=== PATIENT | female | born 2000 | race Caucasian/White ===

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

== ENCOUNTER → 2018-05-16 17:38 | Observation (INO) ==
[2018-05-16 14:44] LABS: Amphetamine Screen,Urine Negative ng/mL (Cutoff=1000); Barbiturate Screen,Urine Negative ng/mL (Cutoff=200); Benzodiazepines Screen,Urine Negative ng/mL (Cutoff=200); Cannabinoid Screen,Urine Negative ng/mL (Cutoff = 50); Cocaine Screen,Urine Negative ng/mL (Cutoff= 300); Creatinine,Urine 103 mg/dL; Opiate Screen,Urine Negative ng/mL (Cutoff=300); Phencyclidine Screen,Urine Negative ng/mL (Cutoff=25); Protein/Creatinine Ratio,Urine 0.18 mg/mg (0.00-0.20)
[2018-05-16 16:20] LABS: Basophils % 0.2 %; Eosinophils # 0.3 K/mcL (0.0-0.6); Hematocrit 32.4 % (35.3-44.9); Hemoglobin 10.6 g/dL (11.5-15.4); Immature Granulocytes % 1.2 % (0-4); Lymphocytes # 1.9 K/mcL (0.6-4.6); Lymphocytes % 14.2 %; Mean Corpuscular HGB Conc 32.7 g/dL (31.6-35.5); Mean Corpuscular Hemoglobin 28.3 pg (28.0-33.3); Mean Corpuscular Volume 86.4 fL (83.0-100.0); Mean Platelet Volume 10.8 fL (9.4-12.4); Monocytes % 7.5 %; Neutrophils # 9.9 K/mcL (1.6-8.9); Platelet Count 170 K/mcL (140-400); Red Blood Count 3.75 M/mcL (3.82-4.97); Red Cell Distribution Width 12.6 % (11.5-14.5); Segmented Neutrophils % 74.9 %
[2018-05-16 16:32] LABS: Alanine Aminotransferase 8 Units/L (7-52); Aspartate Amino Transferase 13 Units/L (13-39); BUN/Creatinine Ratio 9 (6-26); Blood Urea Nitrogen 4 mg/dL (6-20); Lactate Dehydrogenase 150 Units/L (140-271); Uric Acid 3.5 mg/dL (2.3-7.6); eGFR For Non-African Americans > 60
--- NOTE | 2018-05-16 16:52 | Discharge Summary ---
Date of Encounter: 05/16/18 Time of Encounter: 16:52 - Discharge Diagnosis (1) 33 weeks gestation of Priority: Primary Status: Acute Comments: admitted for observation for [facility] evaluation (2) NST (non-stress test) reactive on surveillance Priority: Secondary Status: Acute Comments: fhr baseline 135 bpm moderate variability +15x15 accels no decels noted. Cat. 1 tracing - Discharge Medications Prescriptions: No Action Pnv with Ca,No.72/Iron/FA [Pnv Plus Multivit Tab] 1 tab PO DAILY Home Medications: Pnv with Ca,No.72/Iron/FA [Pnv Plus Multivit Tab] 1 tab PO DAILY 03/21/18 [History] Allergies/Adverse Reactions: Allergy/AdvReac Type Severity Reaction Status Date / Time Amoxicillin Allergy Rash Verified 05/16/18 14:17 Penicillins [PCN] Allergy Rash Verified 05/16/18 14:17 Data Procedures and tests throughout hospitalization: Laboratory Tests 05/16/18 05/16/18 05/16/18 13:37 14:07 14:07 WBC 13.3 H RBC 3.75 L Hgb 10.6 L Hct 32.4 L MCV 86.4 MCH 28.3 MCHC 32.7 RDW 12.6 Plt Count 170 MPV 10.8 Immature Gran % 1.2 Seg Neutrophils % 74.9 Lymphocytes % 14.2 Monocytes % 7.5 Eosinophils % 2.0 Basophils % 0.2 Neutrophils # 9.9 H Lymphocytes # 1.9 Monocytes # 1.0 Eosinophils # 0.3 Basophils # 0.0 BUN Creatinine 0.41 L Est GFR ( Amer) Est GFR (Non-Af Amer) BUN/Creatinine Ratio Uric Acid AST ALT Lactate Dehydrogenase Urine Creatinine 103 Protein/Creatinin Ratio 0.18 Urine Total Protein 18 H Urine Opiates Screen Negative Ur Barbiturates Screen Negative Ur Phencyclidine Scrn Negative Ur Amphetamines Screen Negative U Benzodiazepines Scrn Negative Urine Cocaine Screen Negative U Marijuana (THC) Screen Negative Ur Drug Screen Interp See Below 05/16/18 14:07 WBC RBC Hgb Hct MCV MCH MCHC RDW Plt Count MPV Immature Gran % Seg Neutrophils % Lymphocytes % Monocytes % Eosinophils % Basophils % Neutrophils # Lymphocytes # Monocytes # Eosinophils # Basophils # BUN 4 L Creatinine 0.44 L Est GFR ( Amer) > 60 Est GFR (Non-Af Amer) > 60 BUN/Creatinine Ratio 9 Uric Acid 3.5 AST 13 ALT 8 Lactate Dehydrogenase 150 Urine Creatinine Protein/Creatinin Ratio Urine Total Protein Urine Opiates Screen Ur Barbiturates Screen Ur Phencyclidine Scrn Ur Amphetamines Screen U Benzodiazepines Scrn Urine Cocaine Screen U Marijuana (THC) Screen Ur Drug Screen Interp Labs on day of discharge: Labs from last 24 hours 05/16/18 05/16/18 05/16/18 14:07 14:07 14:07 WBC 13.3 H RBC 3.75 L Hgb 10.6 L Hct 32.4 L MCV 86.4 MCH 28.3 MCHC 32.7 RDW 12.6 Plt Count 170 MPV 10.8 Immature Gran % 1.2 Seg Neutrophils % 74.9 Lymphocytes % 14.2 Monocytes % 7.5 Eosinophils % 2.0 Basophils % 0.2 Neutrophils # 9.9 H Lymphocytes # 1.9 Monocytes # 1.0 Eosinophils # 0.3 Basophils # 0.0 BUN 4 L Creatinine 0.44 L 0.41 L Est GFR ( Amer) > 60 Est GFR (Non-Af Amer) > 60 BUN/Creatinine Ratio 9 Uric Acid 3.5 AST 13 ALT 8 Lactate Dehydrogenase 150 Urine Creatinine Protein/Creatinin Ratio Urine Total Protein Urine Opiates Screen Ur Barbiturates Screen Ur Phencyclidine Scrn Ur Amphetamines Screen U Benzodiazepines Scrn Urine Cocaine Screen U Marijuana (THC) Screen Ur Drug Screen Interp 05/16/18 13:37 WBC RBC Hgb Hct MCV MCH MCHC RDW Plt Count MPV Immature Gran % Seg Neutrophils % Lymphocytes % Monocytes % Eosinophils % Basophils % Neutrophils # Lymphocytes # Monocytes # Eosinophils # Basophils # BUN Creatinine Est GFR ( Amer) Est GFR (Non-Af Amer) BUN/Creatinine Ratio Uric Acid AST ALT Lactate Dehydrogenase Urine Creatinine 103 Protein/Creatinin Ratio 0.18 Urine Total Protein 18 H Urine Opiates Screen Negative Ur Barbiturates Screen Negative Ur Phencyclidine Scrn Negative Ur Amphetamines Screen Negative U Benzodiazepines Scrn Negative Urine Cocaine Screen Negative U Marijuana (THC) Screen Negative Ur Drug Screen Interp See Below Date of admission: 05/16/18 13:25 Primary care physician: Natalie Hillman MD Discharging clinician: Meagan Redman Anticipated date of discharge: 05/16/18 - Patient Status Disposition: Home, Self-Care Condition: Good Functional capacity at discharge: independent ambulation - Discharge Instructions Follow Up With: Natalie Hillman MD [Primary Care Provider] - Navi Villagran MD [Partnered Physician] - - Diet and Activity Activity: increase activity as tolerated Diet: regular diet Hospital Course [employer] Hospital course: Patient is a 17 y/o @ 33w2d presented to labor and delivery with complaints of blurred vision. Patient was working when this happened. Patient reports good movement. Denies any contractions, LOF or VB. Patient reports feeling better after taking a nap in labor and delivery. All [facility] labs wnl along with BPs. Dr. Villagran notified and gave order to discharge home. Time Attestation: Total time spent providing and/or coordinating discharge services: Time Spent: Less than 30 minutes Exam - Constitutional General appearance IM: A&O X 3, pleasant, answers questions appropriately - Respiratory Respiratory exam: Present: CTAB - Cardiovascular Cardiovascular exam IM: Present: RRR, +S1, +S2 - Extremities Exam Extremities exam IM: Present: full ROM, normal capillary refill, normal inspection - Neurological Exam Neurological exam: alert, oriented X3, reflexes normal (FHR 135 bpm moderate variability +15x15 accels no decels noted. CAt. 1 tracing) - VTE Reasons for not Prescribing Prophylaxis: Treatment not Indicated - Low risk for VTE
== END | disposition home or self-care (01) ==
LOC: 1NENULAB
PROVIDERS: ADMIT Advanced Practice Midwife; ATTEND Advanced Practice Midwife

== ENCOUNTER 2018-07-02 06:00 | Inpatient (IN) ==
[2018-07-02] MEDS ORDERED: Metoclopramide 10 MG/2 ML VIAL IVP PRN (06:09)
[2018-07-02] MEDS ORDERED: Lidocaine 1% 20 ML MDV INFILT PRN (06:09)
[2018-07-02] MEDS ORDERED: Famotidine 20 MG/2 ML VIAL IVP PRN (06:09)
[2018-07-02] MEDS ORDERED: *HR* Nalbuphine 10 MG/ML AMPUL IVP PRN (06:09)
[2018-07-02] MEDS ORDERED: Ondansetron 4 MG/2 ML VIAL IVP PRN (06:09)
[2018-07-02] MEDS ORDERED: Naloxone 0.4 MG/ML INJ IVP PRN (06:09)
[2018-07-02] MEDS ORDERED: Oxytocin 20 units/ LR 1000 mL 20 UNIT/1,000 ML BAG IVC SCH ×2 (06:15→20:00)
[2018-07-02] MEDS ORDERED: Ringers Solution, Lactated 1,000 ML IVC SCH (06:15)
[2018-07-02 06:53] LABS: Basophils # 0.1 K/mcL (0.0-0.2); Basophils % 0.4 %; Eosinophils # 0.2 K/mcL (0.0-0.6); Eosinophils % 1.4 %; Hematocrit 34.1 % (35.3-44.9); Hemoglobin 11.3 g/dL (11.5-15.4); Immature Granulocytes % 0.9 % (0-4); Lymphocytes # 2.3 K/mcL (0.6-4.6); Lymphocytes % 16.4 %; Mean Corpuscular HGB Conc 33.1 g/dL (31.6-35.5); Mean Corpuscular Hemoglobin 27.3 pg (28.0-33.3); Mean Corpuscular Volume 82.4 fL (83.0-100.0); Mean Platelet Volume 11.1 fL (9.4-12.4); Monocytes % 6.8 %; Neutrophils # 10.4 K/mcL (1.6-8.9); Platelet Count 162 K/mcL (140-400); Red Blood Count 4.14 M/mcL (3.82-4.97); Segmented Neutrophils % 74.1 %
[2018-07-02 06:55] LABS: Amphetamine Screen,Urine Negative ng/mL (Cutoff=1000); Barbiturate Screen,Urine Negative ng/mL (Cutoff=200)
[2018-07-02 06:56] LABS: Benzodiazepines Screen,Urine Negative ng/mL (Cutoff=300); Cannabinoid Screen,Urine Negative ng/mL (Cutoff = 50); Cocaine Screen,Urine Negative ng/mL (Cutoff= 300); Opiate Screen,Urine Negative ng/mL (Cutoff=300); Phencyclidine Screen,Urine Negative ng/mL (Cutoff=25)
--- NOTE | 2018-07-02 07:24 | OB/GYN History & Physical ---
Date of Encounter: 07/02/18 Time of Encounter: 07:20 Assessment and Plan (1) 39 weeks gestation of Current visit: Yes Status: Acute (2) MTHFR gene mutation Current visit: Yes Status: Acute (3) Elective induction of labor planned Current visit: Yes Status: Acute History of Present Illness Chief complaint: induction HPI: Ms. Kaur is a 17 year old female who presents today for induction of labor. She is doing well. She is having no complaints of any kind today. Baby is very active with measured category 1 tracing this morning. Pitocin will be started. She has allergies to Omnicef. She is currently on vitamins. 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 Her ESR was 1: 232 last and thus not placed on anticoagulants by [facility]. MFM is been followed patient's and doubly she needed a blood thinners. They believe her MTHFR is diluted by volumes, it is not suggested for this patient to be on any medications. Surgical history is negative. She has no history of abnormal Pap smears, STDs or pelvic infections. She has no history of abnormal breast findings. Socially she denies tobacco, alcohol, illicit drug use. Family history significant for maternal grandmother with breast and lung cancer. Maternal grandfather with lung cancer. Obstetric history significant for one term vaginal delivery. Past Med Surg Social Fam HX - Past Medical History Medical history: no medical history Additional medical history: MTHFR Psychiatric history: no psych history - Past Surgical History Surgical History: other Additional surgical history: left ring finger surgery @ 13 wks - Social History Smoking Status: Never smoker Smokeless Tobacco Status: No Alcohol use: none Drug use: none - Family History Mother Family Member Ethnicity: Non- Living Status: Still Living Hx Family Cardiac Disorders: No Hx Family Respiratory Disorders: No Hx Family Cancer: No Hx Family GI Disorders: No Hx Family Genitourinary Disorders: No Hx Family Endocrine Disorder: No Hx Family Musculoskeletal Disorders: No Hx Family Neuromuscular Disorders: No Hx Family Neurologic Disorders: No Hx Family HEENT Disorders: No Hx Family Autoimmune Disorders: No Hx Family Reproductive Disorders: No Hx Family Psychosocial Disorders: No Hx Family Medical Disorders: No Obstetrical History - Pregnancies : 2 Para: 1 Livin Medications and Allergies Pnv with Ca,No.72/Iron/FA [Pnv Plus Multivit Tab] 1 tab PO DAILY 01/25/19 [History] Allergy/AdvReac Type Severity Reaction Status Date / Time Amoxicillin Allergy Rash Verified 05/16/18 14:17 Penicillins [PCN] Allergy Rash Verified 05/16/18 14:17 Review of System OB All systems PM: reviewed and no additional remarkable complaints except as stated Exam - Vital Signs Vital signs: Initial Vital Signs Pulse Resp BP 90 15 135/83 07/02/18 06:15 07/02/18 06:15 07/02/18 06:15 - Constitutional Constitutional: well developed, well nourished, no acute distress, average body habitus - HEENT HEENT: EOMI, PERRL - Neck Neck exam: full ROM - Lungs Respiratory exam: CTAB - Cardiovascular Cardiovascular exam: RRR - Abdomen Abdomen: Present: bowel sounds normal, gravid, non tender - Extremities Extremities exam: full ROM - Vagina Vagina: Present: normal moisture - Cervix Dilation: 3 Effacement: 80 Station: -1 - Uterus Uterus exam: Present: normal size Results Result Diagrams: 07/02/18 06:30 Abnormal lab results WBC 14.0 K/mcL (4.3-11.1) H 07/02/18 06:30 Hgb 11.3 g/dL (11.5-15.4) L 07/02/18 06:30 Hct 34.1 % (35.3-44.9) L 07/02/18 06:30 MCV 82.4 fL (83.0-100.0) L 07/02/18 06:30 MCH 27.3 pg (28.0-33.3) L 07/02/18 06:30 10.4 K/mcL (1.6-8.9) H 07/02/18 06:30 All other labs normal. - VTE Reasons for not Prescribing Prophylaxis: Treatment not Indicated - Low risk for VTE
--- NOTE | 2018-07-02 09:17 | OB Labor Progress Note ---
Date of Encounter: 07/02/18 Time of Encounter: 09:15 Labor Progress Note - Subjective Subjective: Patient is coping well with contractions. Has been up on birthing ball. - Vital Signs Vital Signs: WNL - Cervix Cervix: 3-4/80/-2 - Heart Tones Heart Tones: FHR 135 bpm, moderate variability, +15x15 accels, no decels. - [place]: Irregular - Interventions Interventions: SVE Cervical ripening balloon inserted without difficulty. 60 mL sterile water ins erted in uterine balloon, 40 mL inserted in vaginal balloon. Patient tolerated with minimal discomfort. - Plan Physician notified: Yes Physician notified details: Dr. Villagran updated on insertion of cervical kaiser Plan: Continue induction as planned Epidural or IV pain medication if patient desires. Anticipate
[2018-07-02] MEDS ORDERED: Bupivacaine-MPF 0.25% 10 ML VIAL ONE (16:07)
[2018-07-02] MEDS ORDERED: *HR* FentaNYL (PF) 100 MCG/2 ML VIAL ONE (16:07)
[2018-07-02] MEDS ORDERED: Epidural Premix (fent/bupiv) 110 ML EP ONE (16:08)
--- NOTE | 2018-07-02 17:05 | OB/GYN Procedure Note ---
Delivery - Delivery Date: 07/02/18 Provider: Navi Villagran Intrapartum events: none Delivery induction: oxytocin, kaiser Delivery augmentation: rupture of membranes Delivery monitor: external FHT, external uterine Anesthesia: epidural Quantitated Blood Loss: 300 - Infant (s) Infant A Delivery Date: 07/02/18 Presentation: vertex Position: OA Route of delivery: Gender: Female Viability: Viable Pounds: 8 Ounces: 1 at 1 minute: 6 at 5 mins: 9 Shoulder Dystocia: encountered Shoulder Dystocia Maneuvers: Adriana maneuver, suprapubic pressure, Olvera Screw maneuver Shoulder dystocia time elapsed: 1 minute 15 seconds Specimens collected: cord blood Placenta: spontaneous Cord: 3 umbilical vessels - Repair Episiotomy: none Laceration Description: None - Complications Delivery complications: none Delivery comments: This patient progressed to complete and pushing when she had an epidural. Patient brought baby's head down easily. Patient still feeling some pain with her epidural. Once baby's head was out I encountered a shoulder dystocia for about 1 minute and 15 seconds. We proceeded through the normal procedure route. I began with Adriana maneuver. We then attempted to rotate with Olvera screw maneuver. This did not work. We then went to suprapubic pressure which did release the left shoulder. The infant was then delivered with 1 push. Infant cried immediately upon delivery. Cord was cut to cut. The was then passed to NICU team in attendance. Cord blood was obtained. The placenta was delivered spontaneously and intact. There are no cervical, vaginal, periurethral, or perineal lacerations noted. Patient delivered a female infant weight was 8 lbs. 1 oz. with Apgars of 6 at 1 minute and 9 at 5 minutes. Estimated blood loss 300 mL. - Disposition Mom disposition: stable in LDR disposition: stable in LDR
--- NOTE | 2018-07-02 17:14 | Anesthesia Evaluation PreOp ---
Date of Encounter: 07/02/18 Time of Encounter: 16:07 - Past History Planned Operation: labor epidural Cardiac History: Denies any Significant Hx Pulmonary History: Denies Any Significant HX POWDER WORKER History: Denies Any Significant HX Other Medical History: Denies Any Significant HX Anesthesia History: No Prior Anesthetic Complications, Past Anesthesia (ORIF left ring finger. No problems with GA. No FHAP. Previous epidurals, no problems.) : Yes Alcohol Use: none Drug use: none Medications and Allergies Pnv with Ca,No.72/Iron/FA [Pnv Plus Multivit Tab] 1 tab PO DAILY 03/21/18 [History] Allergy/AdvReac Type Severity Reaction Status Date / Time Amoxicillin Allergy Rash Verified 05/16/18 14:17 Penicillins [PCN] Allergy Rash Verified 05/16/18 14:17 - Meds/Allergy Pre-op Review Medications Reviewed: Yes Allergies Reviewed: Yes Beta Blockers on Current Med List: No Anesthesia Results - Labs 07/02/18 06:30 Anesthesia Exam 112/65, 92, 18. FHTs 140s. Height: 5'11" Weight: 89kg NPO (# of Hours): >8 Pain Scale: 10 Pain Scale Used: Numeric (1 - 10) - HEENT Pupil (Motor): Pupils equal, EOMI Mallampati: II Teeth: Normal Oral Opening: Greater than 3 - POWDER WORKER LOC: Oriented POWDER WORKER Motor: Normal RUE, Normal LUE, Normal RLE, Normal LLE, Normal Face POWDER WORKER Sensory: Normal: RUE, LUE, RLE, LLE, Face - Cardiac Rhythm: Regular - Pulmonary Breath Sounds: bilateral Clear Respiratory Effort: Symmetrical Anesthesia Assess/Plan ASA Score: 2 Level of consciousness: Cooperative, Oriented, Tranquil Anesthetic Plan: Epidural
--- NOTE | 2018-07-02 17:20 | Anesthesia Procedures ---
Date of Encounter: 07/02/18 Time of Encounter: 16:07 Procedures: Anesthesia - Epidural/Spinal Patient ID/Chart reviewed: Yes Patient examined: Yes OB Eval: Gestational age: 39 OB Eval: : 2 OB Eval: Hx Para: 1 OB Eval: Dilated at (cm): 8 OB Eval: Contractions: Non-stressed pattern Consent Obtained: Yes Supplemental Oxygen: None/Room Air Site Prep: Aseptic Technique, Sterile prep and drape, Povidone-Iodine 1% Patient position: upright Local Anesthetic: Lidocaine 1% (3) Amount of Local Anesthetic used: 3 Touhy Needle Gauge: 18 Touhy Needle Depth (cm): 6 Catheter Depth at Skin (cm): 18 Test Dose (1.5% Lido + Epi): Volume given (mls): 3 Test Dose Result: Negative Loading Dose: 0.25% Marcaine (mls): 8 Loading Dose: Fentanyl (mcg): 100 Loading Dose Administered: Thru Catheter Infusion Med: 0.125% Bupivacaine w/ 2 mcg/ml Fentanyl Infusion Rate (mls/hr): [address]: Tegaderm, Tape Interspace Used: L3-L4 Loss of Resistance (KRIS): Yes Blood: No CSF: No Paresthesia: No Procedure: after dosing catheter with meds as previously charted, BP decreased to 90s/50s. Gave [id number] X2 doses with increased BP to 117/61. FHTs stable throughout. Vitals + FHT's: Vital Signs Time 1607 1621 1625 1630 1635 1640 BP 112/65 119/70 117/56 105/58 98/54 117/61 Pulse 92 87 93 88 84 87 FHTs 140 140 140 140 140 140
[2018-07-02] MEDS ORDERED: Measles/Mumps/Rubella Vacc 0.5 ML VIAL SQ PRN (20:00)
[2018-07-02] MEDS ORDERED: Acetaminophen 325 MG TABLET PO PRN (20:00)
[2018-07-03 04:55] LABS: Basophils % 0.2 %; Eosinophils # 0.2 K/mcL (0.0-0.6); Hematocrit 32.7 % (35.3-44.9); Hemoglobin 10.3 g/dL (11.5-15.4); Immature Granulocytes % 0.7 % (0-4); Lymphocytes % 10.6 %; Mean Corpuscular HGB Conc 31.5 g/dL (31.6-35.5); Mean Corpuscular Hemoglobin 26.4 pg (28.0-33.3); Mean Corpuscular Volume 83.8 fL (83.0-100.0); Mean Platelet Volume 11.2 fL (9.4-12.4); Monocytes # 1.1 K/mcL (0.0-1.3); Neutrophils # 15.1 K/mcL (1.6-8.9); Platelet Count 154 K/mcL (140-400); Red Cell Distribution Width 13.9 % (11.5-14.5); Segmented Neutrophils % 81.5 %
[2018-07-03] MEDS ORDERED: Prenatal Vit/FA 1 EACH TABLET PO SCH (09:00)
--- NOTE | 2018-07-03 10:31 | Discharge Summary ---
Date of Encounter: 07/03/18 Time of Encounter: 10:28 - Discharge Diagnosis (1) Vaginal delivery Priority: Primary Status: Acute Comments: Stable in PP, pain well managed, tolerates po diet, bleeding minimal, , meeting all PP milestones, desires discharge. - Discharge Medications Prescriptions: New Docusate [Colace] 100 mg PO BID #30 capsule Ferrous Sulfate 325 mg PO DAILY #30 tablet Ibuprofen [Motrin] 600 mg PO Q6HR PRN #60 tab PRN Reason: Pain Acetaminophen [Tylenol] 650 mg PO Q6HR PRN tablet PRN Reason: Mild Pain Discontinued Pnv with Ca,No.72/Iron/FA [Pnv Plus Multivit Tab] 1 tab PO DAILY Home Medications: Acetaminophen [Tylenol] 650 mg PO Q6HR PRN tablet 07/03/18 [Rx] Docusate [Colace] 100 mg PO BID #30 capsule 07/03/18 [Rx] Ferrous Sulfate 325 mg PO DAILY #30 tablet 07/03/18 [Rx] Ibuprofen [Motrin] 600 mg PO Q6HR PRN #60 tab 07/03/18 [Rx] Allergies/Adverse Reactions: Allergy/AdvReac Type Severity Reaction Status Date / Time Amoxicillin Allergy Rash Verified 05/16/18 14:17 Penicillins [PCN] Allergy Rash Verified 05/16/18 14:17 Data Procedures and tests throughout hospitalization: Laboratory Tests 07/02/18 07/02/18 07/03/18 06:30 06:30 04:31 WBC 14.0 H 18.5 H RBC 4.14 3.90 Hgb 11.3 L 10.3 L Hct 34.1 L 32.7 L MCV 82.4 L 83.8 MCH 27.3 L 26.4 L MCHC 33.1 31.5 L RDW 14.0 13.9 Plt Count 162 154 MPV 11.1 11.2 Immature Gran % 0.9 0.7 Seg Neutrophils % 74.1 81.5 Lymphocytes % 16.4 10.6 Monocytes % 6.8 6.0 Eosinophils % 1.4 1.0 Basophils % 0.4 0.2 Neutrophils # 10.4 H 15.1 H Lymphocytes # 2.3 2.0 Monocytes # 1.0 1.1 Eosinophils # 0.2 0.2 Basophils # 0.1 0.0 Urine Opiates Screen Negative Ur Barbiturates Screen Negative Ur Phencyclidine Scrn Negative Ur Amphetamines Screen Negative U Benzodiazepines Scrn Negative Urine Cocaine Screen Negative U Marijuana (THC) Screen Negative Ur Drug Screen Interp See Below Labs on day of discharge: Labs from last 24 hours 07/03/18 04:31 WBC 18.5 H RBC 3.90 Hgb 10.3 L Hct 32.7 L MCV 83.8 MCH 26.4 L MCHC 31.5 L RDW 13.9 Plt Count 154 MPV 11.2 Immature Gran % 0.7 Seg Neutrophils % 81.5 Lymphocytes % 10.6 Monocytes % 6.0 Eosinophils % 1.0 Basophils % 0.2 Neutrophils # 15.1 H Lymphocytes # 2.0 Monocytes # 1.1 Eosinophils # 0.2 Basophils # 0.0 Date of admission: 07/02/18 06:07 Primary care physician: Adolfo Darnell MD Consults: 07/02/18 20:00 Consult to Helminthologist [CONS] Routine Comment: Vaginal delivery, consult needed Discharging clinician: Dana Wyatt Anticipated date of discharge: 07/03/18 - Patient Status Disposition: Home, Self-Care Condition: Good Overall status at discharge: patient is progressing back to baseline - Discharge Instructions Follow Up With: Adolfo Darnell MD [Primary Care Provider] - - Diet and Activity Activity: resume usual activities as tolerated Diet: regular diet Hospital Course Reason for admission: IUP at term Delivery: Episiotomy: none Laceration: none Other procedures: none complications: none Discharge diagnosis: IUP at term delivered [place] baby: female Hospital course: Delivery - Delivery Date: 07/02/18 Provider: Navi Villagran Intrapartum events: none Delivery induction: oxytocin, kaiser Delivery augmentation: rupture of membranes Delivery monitor: external FHT, external uterine Anesthesia: epidural Quantitated Blood Loss: 300 - Infant (s) Infant A Infant Delivery Date: 07/02/18 Presentation: vertex Position: OA Route of delivery: Gender: Female Viability: Viable Pounds: 8 Ounces: 1 at 1 minute: 6 at 5 mins: 9 Shoulder Dystocia: encountered Shoulder Dystocia Maneuvers: Adriana maneuver, suprapubic pressure, Olvera Screw maneuver Shoulder dystocia time elapsed: 1 minute 15 seconds Specimens collected: cord blood Placenta: spontaneous Cord: 3 umbilical vessels - Repair Episiotomy: none Laceration Description: None - Complications Delivery complications: none Delivery comments: This patient progressed to complete and pushing when she had an epidural. Patient brought baby's head down easily. Patient still feeling some pain with her epidural. Once baby's head was out I encountered a shoulder dystocia for about 1 minute and 15 seconds. We proceeded through the normal procedure route. I began with Adriana maneuver. We then attempted to rotate with Olvera screw maneuver. This did not work. We then went to suprapubic pressure which did release the left shoulder. The was then delivered with 1 push. Infant cried immediately upon delivery. Cord was cut to cut. The was then passed to NICU team in attendance. Cord blood was obtained. The placenta was delivered spontaneously and intact. There are no cervical, vaginal, periurethral, or perineal lacerations noted. Patient delivered a female weight was 8 lbs. 1 oz. with Apgars of 6 at 1 minute and 9 at 5 minutes. Estimated blood loss 300 mL. - Disposition Mom disposition: stable in PP and appropriate for discharge Time Attestation: Total time spent providing and/or coordinating discharge services: Time Spent: Less than 30 minutes Exam - Constitutional Vitals: Temp Pulse Resp BP Pulse Ox 98.4 F 87 16 118/78 97 07/03/18 03:25 07/03/18 03:25 07/03/18 03:25 07/03/18 03:25 07/03/18 03:25 General appearance IM: A&O X 3 - Respiratory Respiratory exam: Present: CTAB - Cardiovascular Cardiovascular exam IM: Present: RRR - GI/Abdominal GI/Abdominal exam IM: soft - Uterine Tone: Firm Uterus Position: At Umbilicus - Extremities Exam Extremities exam IM: Present: normal capillary refill, normal inspection - Neurological Exam Neurological exam: normal gait, oriented X3 - Psychiatric Additional comments: reports good mood
[2018-07-03 10:50] VITALS: BP 119/70
== END 2018-07-03 19:42 | disposition home or self-care (01) | DRG 807 ==
LOC: 1NENULAB 06:07 → 1NENUOBS 20:01
PROVIDERS: ADMIT Obstetrics & Gynecology; ATTEND Obstetrics & Gynecology

== ENCOUNTER 2019-05-26 05:58 | Inpatient (IN) ==
[2019-05-26] MEDS ORDERED: Lidocaine 1% 20 ML MDV ID PRN (06:17)
[2019-05-26] MEDS ORDERED: Ondansetron 4 MG/2 ML VIAL IVP PRN (06:17)
[2019-05-26] MEDS ORDERED: Naloxone 0.4 MG/ML INJ IVP PRN (06:17)
[2019-05-26] MEDS ORDERED: Metoclopramide 10 MG/2 ML VIAL IVP PRN (06:17)
[2019-05-26] MEDS ORDERED: miSOPROStoL 25 MCG TABLET VG PRN (06:17)
[2019-05-26] MEDS ORDERED: Famotidine 20 MG/2 ML VIAL IVP PRN (06:17)
[2019-05-26] MEDS ORDERED: Azithromycin 500 MG in 0.9 % Sodium Chloride 250 ML IVPB ONE (06:17)
[2019-05-26] MEDS ORDERED: Oxytocin 20 units/ LR 1000 mL 20 UNIT/1,000 ML BAG IVC SCH (06:30)
[2019-05-26 06:39] LABS: Basophils # 0.1 K/mcL (0.0-0.2); Basophils % 0.4 %; Eosinophils # 0.5 K/mcL (0.0-0.6); Eosinophils % 3.8 %; Hematocrit 37.3 % (35.3-44.9); Hemoglobin 12.4 g/dL (11.5-15.4); Immature Granulocytes % 0.6 % (0-4); Lymphocytes # 2.3 K/mcL (0.6-4.6); Lymphocytes % 16.5 %; Mean Corpuscular HGB Conc 33.2 g/dL (31.6-35.5); Mean Corpuscular Hemoglobin 29.3 pg (28.0-33.3); Mean Corpuscular Volume 88.2 fL (83.0-100.0); Mean Platelet Volume 10.9 fL (9.4-12.4); Monocytes # 0.8 K/mcL (0.0-1.3); Platelet Count 167 K/mcL (140-400); Red Blood Count 4.23 M/mcL (3.82-4.97); Red Cell Distribution Width 14.6 % (11.5-14.5); Segmented Neutrophils % 72.7 %; White Blood Count 13.7 K/mcL (4.3-11.1)
[2019-05-26] MEDS: Ringers Solution, Lactated 1,000 ML IVC SCH ×2 (07:29→09:38)
[2019-05-26] MEDS ORDERED: Epidural Premix (fent/bupiv) 110 ML EP ONE (07:43)
[2019-05-26 08:22] LABS: Amphetamine Screen,Urine Negative ng/mL (Cutoff=1000); Barbiturate Screen,Urine Negative ng/mL (Cutoff=200); Benzodiazepines Screen,Urine Negative ng/mL (Cutoff=200); Cannabinoid Screen,Urine Negative ng/mL (Cutoff = 50); Cocaine Screen,Urine Negative ng/mL (Cutoff= 300); Opiate Screen,Urine Negative ng/mL (Cutoff=300); Phencyclidine Screen,Urine Negative ng/mL (Cutoff=25)
[2019-05-26] MEDS ORDERED: EPHEDrine 50 MG/ML VIAL IVP PRN (08:32)
[2019-05-26] MEDS ORDERED: Epidural Premix (fent/bupiv) 110 ML EP SCH (08:45)
[2019-05-26] MEDS: Oxytocin 20 units/ LR 1000 mL 20 UNIT/1,000 ML BAG IVC SCH ×2 (13:23→15:50)
[2019-05-26] MEDS ORDERED: Acetaminophen 325 MG TABLET PO PRN (15:32)
[2019-05-26] MEDS ORDERED: Measles/Mumps/Rubella Vacc 0.5 ML VIAL SQ PRN (15:32)
[2019-05-26] MEDS: Ibuprofen 600 MG TABLET PO PRN (15:49)
[2019-05-27 04:41] LABS: Basophils % 0.3 %; Eosinophils # 0.5 K/mcL (0.0-0.6); Hematocrit 34.1 % (35.3-44.9); Hemoglobin 11.2 g/dL (11.5-15.4); Immature Granulocytes % 0.6 % (0-4); Lymphocytes # 2.2 K/mcL (0.6-4.6); Lymphocytes % 16.9 %; Mean Corpuscular HGB Conc 32.8 g/dL (31.6-35.5); Mean Corpuscular Hemoglobin 28.8 pg (28.0-33.3); Mean Corpuscular Volume 87.7 fL (83.0-100.0); Mean Platelet Volume 10.5 fL (9.4-12.4); Monocytes # 0.9 K/mcL (0.0-1.3); Monocytes % 6.8 %; Neutrophils # 9.1 K/mcL (1.6-8.9); Platelet Count 138 K/mcL (140-400); Red Blood Count 3.89 M/mcL (3.82-4.97); Red Cell Distribution Width 14.5 % (11.5-14.5); Segmented Neutrophils % 71.4 %; White Blood Count 12.7 K/mcL (4.3-11.1)
[2019-05-27] MEDS ORDERED: Prenatal Vit/FA 1 EACH TABLET PO SCH (09:00)
[2019-05-27] MEDS: Ibuprofen 600 MG TABLET PO PRN (09:05)
[2019-05-27 11:41] LABS: Adenovirus Not Detected (Not Detect); Bordetella Pertussis Not Detected (Not Detect); Chlamydophila pneumoniae Not Detected (Not Detect); Coronavirus 229E Not Detected (Not Detect); Coronavirus HKU1 Not Detected (Not Detect); Coronavirus NL63 Not Detected (Not Detect); Coronavirus OC43 Not Detected (Not Detect); Human Metapneumovirus Not Detected (Not Detect); Human Rhinovirus/Enterovirus Not Detected (Not Detect); Influenza A Subtype 2009 H1 Not Detected (Not Detect); Influenza B Not Detected (Not Detect); Mycoplasma pneumoniae Not Detected (Not Detect); Parainfluenza Virus 1 Not Detected (Not Detect); Parainfluenza Virus 2 Not Detected (Not Detect); Parainfluenza Virus 3 Not Detected (Not Detect); Parainfluenza Virus 4 Not Detected (Not Detect); Respiratory Syncytial Virus Not Detected (Not Detect)
[2019-05-27 12:50] VITALS: BP 125/82
[2019-05-27] MEDS ORDERED: Methylergonovine 0.2 MG/ML AMPUL IM ONE (15:59)
== END 2019-05-27 16:00 | disposition home or self-care (01) ==
LOC: 1NENULAB 05:58 → 1NENUOBS 16:21
PROVIDERS: ADMIT Obstetrics & Gynecology; ATTEND Obstetrics & Gynecology

== ENCOUNTER 2019-07-10 22:58 | Observation (INO) ==
[2019-07-10 14:32] LABS: Basophils # 0.1 K/mcL (0.0-0.2); Basophils % 0.7 %; Eosinophils # 0.5 K/mcL (0.0-0.6); Eosinophils % 6.1 %; Hematocrit 39.6 % (35.3-44.9); Hemoglobin 12.7 g/dL (11.5-15.4); Immature Granulocytes % 0.4 % (0-4); Lymphocytes # 1.7 K/mcL (0.6-4.6); Lymphocytes % 23.6 %; Mean Corpuscular HGB Conc 32.1 g/dL (31.6-35.5); Mean Corpuscular Hemoglobin 28.3 pg (28.0-33.3); Mean Corpuscular Volume 88.2 fL (83.0-100.0); Mean Platelet Volume 9.9 fL (9.4-12.4); Monocytes # 0.4 K/mcL (0.0-1.3); Monocytes % 5.7 %; Neutrophils # 4.7 K/mcL (1.6-8.9); Platelet Count 175 K/mcL (140-400); Red Blood Count 4.49 M/mcL (3.82-4.97); Red Cell Distribution Width 13.9 % (11.5-14.5); Segmented Neutrophils % 63.5 %; White Blood Count 7.4 K/mcL (4.3-11.1)
[2019-07-10 19:32] LABS: Basophils % 0.2 %; Eosinophils % 0.2 %; Mean Corpuscular Hemoglobin 29.3 pg (28.0-33.3)
[2019-07-10 19:33] LABS: Basophils # 0.1 K/mcL (0.0-0.2); Eosinophils # 0.1 K/mcL (0.0-0.6); Hematocrit 25.2 % (35.3-44.9); Hemoglobin 8.2 g/dL (11.5-15.4); Immature Granulocytes % 0.9 % (0-4); Lymphocytes # 1.5 K/mcL (0.6-4.6); Lymphocytes % 5.1 %; Mean Corpuscular HGB Conc 32.5 g/dL (31.6-35.5); Mean Platelet Volume 10.2 fL (9.4-12.4); Monocytes # 0.5 K/mcL (0.0-1.3); Monocytes % 1.7 %; Neutrophils # 26.4 K/mcL (1.6-8.9); Platelet Count 188 K/mcL (140-400); Red Cell Distribution Width 13.8 % (11.5-14.5); Segmented Neutrophils % 91.9 %; White Blood Count 28.7 K/mcL (4.3-11.1)
[2019-07-10 19:40] LABS: INR 1.2; Prothrombin Time 13.5 Seconds (9.4-12.1)
[2019-07-10 19:43] LABS: Activated Partial Thrombo Time 27.5 Seconds (26.0-36.0)
[2019-07-10 19:53] LABS: Fibrinogen < 215 mg/dL (169-393)
[2019-07-10 20:06] LABS: Hypochromasia Present (Not Present); Platelet Estimate Normal (Normal)
[2019-07-10 20:07] LABS: Microcytosis Present (Not Present)
[~2019-07-10 22:58] MED LIST: *HR* Etomidate 40 MG/20 ML VIAL IVP ONE; *HR* FentaNYL (PF) 100 MCG/2 ML VIAL ONE; *HR* Midazolam HCl 2 MG/2 ML VIAL ONE; *HR* OxyCODONE/APAP 5/325 TABLET PO PRN; *HR* Rocuronium Bromide 50 MG/5 ML VIAL ONE; *HR* Succinylcholine 200 MG/10 ML VIAL IVP ONE; 0.9 % Sodium Chloride 250 ML ONE; Acetaminophen IV 1,000 MG/100 ML INFUS..BTL ONE; Dexamethasone 4 MG/ML VIAL ONE; EPHEDrine 50 MG/ML VIAL ONE; Metoclopramide 10 MG/2 ML VIAL IVP PRN; Morphine Sulfate 2 MG/ML SYRINGE IVP PRN; Neostigmine Methylsulfate 3 MG/3 ML SYRINGE ONE; Ondansetron 4 MG/2 ML VIAL ONE; Oxytocin 20 units/ LR 1000 mL 20 UNIT/1,000 ML BAG IVC SCH; Ringers Solution, Lactated 1,000 ML IVC SCH; Ringers Solution, Lactated 1,000 ML ONE; cefOXitin 2,000 MG in Water for inj. (sterile) 20 ML IVP ONE; cefOXitin 2,000 MG in Water for inj. (sterile) 20 ML IVP SCH
[2019-07-10] MEDS ORDERED: Ringers Solution, Lactated 500 ML IVC ONE (23:05)
[2019-07-10] MEDS: Simethicone 80 MG TAB.CHEW PO PRN (23:32)
[2019-07-11] MEDS: cefOXitin 2,000 MG in Water for inj. (sterile) 20 ML IVP SCH ×3 (02:25→18:00)
[2019-07-11] MEDS: Ibuprofen 600 MG TABLET PO PRN ×3 (02:25→16:17)
[2019-07-11] MEDS: Ringers Solution, Lactated 1,000 ML IVC SCH ×2 (05:41→16:15)
[2019-07-11] MEDS: Prenatal Vit/FA 1 EACH TABLET PO SCH (08:30)
[2019-07-11] MEDS: Simethicone 80 MG TAB.CHEW PO PRN ×2 (08:30→23:29)
[2019-07-11 09:08] LABS: Basophils % 0.2 %; Eosinophils # 0.1 K/mcL (0.0-0.6); Eosinophils % 1.3 %; Hematocrit 23.4 % (35.3-44.9); Hemoglobin 7.9 g/dL (11.5-15.4); Immature Granulocytes % 0.4 % (0-4); Lymphocytes # 1.7 K/mcL (0.6-4.6); Lymphocytes % 17.2 %; Mean Corpuscular HGB Conc 33.8 g/dL (31.6-35.5); Mean Corpuscular Hemoglobin 29.8 pg (28.0-33.3); Mean Corpuscular Volume 88.3 fL (83.0-100.0); Mean Platelet Volume 10.8 fL (9.4-12.4); Monocytes # 0.7 K/mcL (0.0-1.3); Monocytes % 6.6 %; Neutrophils # 7.4 K/mcL (1.6-8.9); Platelet Count 120 K/mcL (140-400); Red Blood Count 2.65 M/mcL (3.82-4.97); Segmented Neutrophils % 74.3 %
[2019-07-11] MEDS ORDERED: 0.9 % Sodium Chloride 500 ML ONE (10:18)
[2019-07-11] MEDS: *HR* OxyCODONE/APAP 5/325 TABLET PO PRN ×2 (18:15→23:27)
[2019-07-12] MEDS: Ringers Solution, Lactated 1,000 ML IVC SCH (00:26)
[2019-07-12] MEDS: Ibuprofen 600 MG TABLET PO PRN ×2 (00:26→16:31)
[2019-07-12] MEDS: cefOXitin 2,000 MG in Water for inj. (sterile) 20 ML IVP SCH (02:51)
[2019-07-12] MEDS: Prenatal Vit/FA 1 EACH TABLET PO SCH (07:30)
[2019-07-12 08:06] LABS: Basophils % 0.3 %; Eosinophils # 0.3 K/mcL (0.0-0.6); Eosinophils % 4.9 %; Hemoglobin 7.4 g/dL (11.5-15.4); Immature Granulocytes % 0.3 % (0-4); Lymphocytes # 1.8 K/mcL (0.6-4.6); Mean Corpuscular HGB Conc 32.2 g/dL (31.6-35.5); Mean Corpuscular Hemoglobin 28.9 pg (28.0-33.3); Mean Corpuscular Volume 89.8 fL (83.0-100.0); Mean Platelet Volume 10.5 fL (9.4-12.4); Monocytes # 0.5 K/mcL (0.0-1.3); Monocytes % 7.4 %; Neutrophils # 3.9 K/mcL (1.6-8.9); Platelet Count 103 K/mcL (140-400); Red Blood Count 2.56 M/mcL (3.82-4.97); Red Cell Distribution Width 14.5 % (11.5-14.5); Segmented Neutrophils % 59.1 %; White Blood Count 6.5 K/mcL (4.3-11.1)
[2019-07-12] MEDS ORDERED: 0.9 % Sodium Chloride 500 ML ONE (11:07)
[2019-07-12 16:23] VITALS: BP 111/55
[2019-07-12 18:11] LABS: Basophils % 0.3 %; Eosinophils # 0.4 K/mcL (0.0-0.6); Eosinophils % 5.2 %; Hemoglobin 8.8 g/dL (11.5-15.4); Immature Granulocytes % 0.3 % (0-4); Lymphocytes # 1.7 K/mcL (0.6-4.6); Lymphocytes % 23.3 %; Mean Corpuscular HGB Conc 32.6 g/dL (31.6-35.5); Mean Corpuscular Volume 89.1 fL (83.0-100.0); Mean Platelet Volume 10.1 fL (9.4-12.4); Monocytes # 0.5 K/mcL (0.0-1.3); Monocytes % 6.4 %; Neutrophils # 4.6 K/mcL (1.6-8.9); Platelet Count 106 K/mcL (140-400); Red Blood Count 3.03 M/mcL (3.82-4.97); Red Cell Distribution Width 14.5 % (11.5-14.5); Segmented Neutrophils % 64.5 %; White Blood Count 7.2 K/mcL (4.3-11.1)
== END 2019-07-12 19:02 | disposition home or self-care (01) ==
LOC: 1NENULAB → 1NENUOBS 22:58
PROVIDERS: ADMIT Obstetrics & Gynecology; ATTEND Obstetrics & Gynecology

== ENCOUNTER 2021-11-11 14:21 | Observation (INO) ==
[2021-11-11] MEDS ORDERED: cefTRIAXone 1,000 MG in 0.9 % Sodium Chloride 10 ML IVP ONE (15:37)
[2021-11-11] MEDS ORDERED: Ondansetron 4 MG/2 ML VIAL IVP ONE (15:44)
[2021-11-11] MEDS ORDERED: Acetaminophen 325 MG TABLET PO ONE (15:44)
[2021-11-11] MEDS: Ringers Solution, Lactated 1,000 ML IVC SCH ×2 (16:42→18:07)
[2021-11-11 16:56] LABS: Basophils % 0.1 %; Hematocrit 33.5 % (35.3-44.9); Hemoglobin 11.5 g/dL (11.5-15.4); Immature Granulocytes % 0.5 % (0-4); Lymphocytes # 1.2 K/mcL (0.6-4.6); Lymphocytes % 6.3 %; Mean Corpuscular HGB Conc 34.3 g/dL (31.6-35.5); Mean Corpuscular Hemoglobin 29.6 pg (28.0-33.3); Mean Corpuscular Volume 86.3 fL (83.0-100.0); Mean Platelet Volume 10.1 fL (9.4-12.4); Monocytes # 1.7 K/mcL (0.0-1.3); Neutrophils # 16.1 K/mcL (1.6-8.9); Platelet Count 136 K/mcL (140-400); Red Blood Count 3.88 M/mcL (3.82-4.97); Red Cell Distribution Width 12.8 % (11.5-14.5); Segmented Neutrophils % 84.1 %; White Blood Count 19.2 K/mcL (4.3-11.1)
[2021-11-11 17:16] LABS: Albumin 4.1 g/dL (3.5-5.7); Albumin/Globulin Ratio 1.1 (1.1-2.2); Bilirubin,Direct 0.4 mg/dL (0.0-0.2); Bilirubin,Total 1.4 mg/dL (0.3-1.0); Calcium 9.2 mg/dL (8.6-10.3); Globulin 3.6 g/dL (2.4-3.5); Potassium 3.2 mEq/L (3.5-5.1); Total Protein 7.7 g/dL (6.4-8.9)
[2021-11-11 18:11] LABS: Bilirubin,Urine Negative (Negative); Blood,Urine Moderate (Negative); Clarity,Urine Ex.Turbid (Clear); Color,Urine Orange (Yellow); Glucose,Urine (UA) Normal (Normal); Ketones,Urine Negative (Negative); Leukocyte Esterase,Urine Large (Negative); Nitrite,Urine Negative (Negative); Protein,Urine >=300 mg/dL (Neg-Trace); Specific Gravity,Urine 1.023 (1.010-1.025)
[2021-11-11 19:16] LABS: Bacteria,Urine Moderate per hpf (None-Few); Granular Casts,Urine Few per lpf (None Seen); Hyaline Casts,Urine Few per lpf (None Seen); RBC,Urine 0-3 per hpf (0-3); Squamous Epithelial Cell,Urine Few per hpf (None-Few); WBC,Urine 50-100 per hpf (0-3)
[2021-11-11] MEDS ORDERED: Naloxone 0.4 MG/ML INJ IVP PRN (20:49)
[2021-11-11] MEDS ORDERED: Ondansetron 4 MG/2 ML VIAL IVP PRN (20:49)
[2021-11-11] MEDS ORDERED: Melatonin 3 MG TABLET PO PRN (20:49)
[2021-11-11] MEDS ORDERED: Ringers Solution, Lactated 1,000 ML IVC SCH (21:00)
[2021-11-11] MEDS ORDERED: Albuterol 2.5 MG/3 ML NEBULIZER IH ONE (21:38)
[2021-11-11] MEDS: *HR* Heparin 5,000 UNIT/ML VIAL SQ SCH (21:45)
[2021-11-11] MEDS ORDERED: cefTRIAXone 1,000 MG in Water for inj. (sterile) 10 ML IVP ONE (22:00)
[2021-11-11] MEDS: Acetaminophen 325 MG TABLET PO PRN (22:59)
[2021-11-12] MEDS: Acetaminophen 325 MG TABLET PO PRN (05:01)
[2021-11-12] MEDS: *HR* Heparin 5,000 UNIT/ML VIAL SQ SCH (05:02)
[2021-11-12 08:06] VITALS: BP 106/68; PULSE 87; TEMP 98.1; O2SAT 99
[2021-11-12] MEDS ORDERED: cefTRIAXone 1,000 MG in Water for inj. (sterile) 10 ML IVP SCH (09:00)
[2021-11-12] MEDS ORDERED: cefTRIAXone 2,000 MG in 0.9 % Sodium Chloride 20 ML IVP SCH (09:00)
[2021-11-12 09:35] LABS: Basophils % 0.1 %; Hemoglobin 10.1 g/dL (11.5-15.4)
[2021-11-12 09:37] LABS: Hematocrit 29.5 % (35.3-44.9); Immature Granulocytes % 0.8 % (0-4); Immature Platelets 8.8 % (1.1-6.1); Lymphocytes # 1.3 K/mcL (0.6-4.6); Lymphocytes % 8.3 %; Mean Corpuscular HGB Conc 34.2 g/dL (31.6-35.5); Mean Corpuscular Volume 87.5 fL (83.0-100.0); Mean Platelet Volume 11.3 fL (9.4-12.4); Monocytes # 1.4 K/mcL (0.0-1.3); Neutrophils # 12.6 K/mcL (1.6-8.9); Platelet Count 107 K/mcL (140-400); Red Blood Count 3.37 M/mcL (3.82-4.97); Segmented Neutrophils % 81.8 %; White Blood Count 15.4 K/mcL (4.3-11.1)
[2021-11-12 09:53] LABS: Calcium 8.4 mg/dL (8.6-10.3); Phosphorous 3.4 mg/dL (2.7-4.5); Potassium 3.2 mEq/L (3.5-5.1)
[2021-11-13 08:56] LABS: Protein/Creatinine Ratio,Urine 1.13 mg/mg (0.00-0.20); Sodium, Urine 23.9 mEq/L
== END 2021-11-12 10:39 | disposition home or self-care (01) ==
LOC: EMEROOARM 14:21 → 3ANU 14:21 → SUATTDRO 20:17 → 3ANU 20:53
PROVIDERS: ADMIT Internal Medicine; ATTEND Internal Medicine